=== PATIENT | male | born 1970 | race Caucasian/White ===

== ENCOUNTER 2025-08-27 09:08 | Outpatient (CLI) | payer OTHER | END 2025-08-27 09:09 | disposition home or self-care (01) | LOC: BICRAD 09:08 | PROVIDERS: ATTEND Nurse Practitioner Family | DX: S91.331A Puncture wound without foreign body, right foot, initial encounter (principal); L03.115 Cellulitis of right lower limb; T30.0 Burn of unspecified body region, unspecified degree ==